=== PATIENT | male | born 1950 | race Caucasian/White ===

== ENCOUNTER 2022-12-11 04:02 | Emergency (ER) | payer OTHER ==
[~2022-12-11] VITALS: Ht 175.3 cm; Wt 90.0 kg
[2022-12-11 04:10] VITALS: O2SAT 100
[2022-12-11 05:03] LABS: HEMATOCRIT. 40.2 % (42.0-52.0); HEMOGLOBIN. 13.2 g/dL (14.0-18.0); MEAN CORPUSCULAR HEMOGLOBIN 30.2 pg (28.0-32.0); MEAN CORPUSCULAR HGB CONC 32.9 g/dL (31.0-37.0); MEAN CORPUSCULAR VOLUME 91.9 fL (80.0-94.0); MEAN PLATELET VOLUME 10.2 fl (7.4-10.4); PLATELET 132 x1000/uL (130-400); RED BLOOD CELL COUNT 4.38 mill/uL (4.7-6.1); RED CELL DISTRIBUTION WIDTH 13.8 % (11.6-14.6)
[2022-12-11 05:05] LABS: CLARITY URINE CLEAR (CLEAR); COLOR URINE YELLOW (YELLOW); GLUCOSE URINE NEGATIVE (NEGATIVE); KETONES URINE NEGATIVE (NEGATIVE); LEUKOCYTE ESTERASE URINE TRACE (NEGATIVE); NITRITE URINE NEGATIVE (NEGATIVE); OCCULT BLOOD URINE 1+ (NEGATIVE); PH URINE 6.5 (4.5-8.0); PROTEIN URINE NEGATIVE (NEGATIVE); UROBILINOGEN URINE 0.2 E.U./dL (0.2-1.0)
[2022-12-11 05:08] LABS: BACTERIA URINE NONE SEEN; YEAST URINE NONE SEEN
[2022-12-11 05:13] LABS: CHLORIDE 104 mEq/L (98-107); INDEX HEMOLYSI 1 (1-3); INDEX ICTERIC 1 (1-4); INDEX LIPEMIC 1 (1-3); POTASSIUM 3.1 mEq/L (3.5-5.1); SODIUM 137 mEq/L (136-145)
[2022-12-11 05:20] LABS: ALANINE AMINOTRANSFERASE 22 IU/L (13-61); ASPARTATE AMINOTRANSFERASE 16 IU/L (15-37); BILIRUBIN TOTAL 0.9 mg/dL (0.1-1.0); CARBON DIOXIDE 26 mEq/L (21-32); CREATININE 1.2 mg/dL (0.6-1.3); GLUCOSE 160 mg/dL (70-105); PROTEIN TOTAL 7.6 g/dL (6.0-8.3); UREA NITROGEN BLOOD 17 mg/dL (7-21)
[2022-12-11 05:33] LABS: DIFFERENTIAL COMMENT 1
[2022-12-11] MEDS ORDERED: SODIUM CHL 0.9% + KCL 20MEQ/L 1,000 ML IV SCH (06:00)
[2022-12-11 06:06] LABS: PLATELET ESTIMATE NORMAL
[2022-12-11 07:10] LABS: RBC URINE 0-2 /hpf (0-2)
[2022-12-11 07:11] LABS: SQUAMOUS EPITHELIAL CELL URINE FEW /lpf (RARE/1+)
[2022-12-11 08:37] VITALS: BP 168/81; PULSE 90; RESP 18; TEMP 98.3
== END 2022-12-11 08:52 ==
LOC: ER 04:02
DX: R33.9 Retention of urine, unspecified (principal); E78.00 Pure hypercholesterolemia, unspecified; I10 Essential (primary) hypertension
CPT/HCPCS: 99285; 96360; 80053; 81003; 85025; 36415; 51702; J3480; A4315